=== PATIENT | male | born 1955 | race Caucasian/White ===

== ENCOUNTER 2018-04-29 07:51 | Day surgery (SDC) | payer MEDICARE, BC ==
[2018-04-29] MEDS ORDERED: DIPRIVAN 200 MG/20 ML IV ONE (07:52)
[2018-04-29] MEDS ORDERED: Depo-Medrol 40 MG/ML IM ONE (07:52)
[2018-04-29] MEDS ORDERED: Marcaine 0.5% SDV 10 ML IJ ONE (07:52)
[2018-04-29] MEDS ORDERED: Xylocaine 1% Vial 30 ML PF IJ ONE (07:52)
--- NOTE | 2018-04-29 11:26 | XRAY ---
Indication: Left hip injection. Intraoperative fluoroscopy was provided for 9 seconds. Single digital spot image submitted for interpretation demonstrates a needle tip projecting superolateral to the femoral head. Small amount of contrast injected for needle tip placement. Correlate with intraoperative findings/report.
--- NOTE | 2018-04-29 11:28 | XRAY ---
9 seconds fluoroscopy time in surgery for left hip injection.
--- NOTE | 2018-04-29 11:28 | XRAY ---
Indication: Right hip injection. Intraoperative fluoroscopy was provided for 10 seconds. Single digital spot image submitted for interpretation demonstrates a needle tip projecting lateral to the femoral head. Small amount of contrast injected for needle tip placement. Correlate with intraoperative findings/report.
--- NOTE | 2018-04-29 11:28 | XRAY ---
7 seconds fluoroscopy time in surgery for left shoulder injection.
--- NOTE | 2018-04-29 11:28 | XRAY ---
10 seconds fluoroscopy time in surgery for right hip injection.
--- NOTE | 2018-04-29 11:31 | XRAY ---
Indication: Left shoulder injection. Intraoperative fluoroscopy was provided for 7 seconds. Single digital spot image submitted for interpretation demonstrates a needle tip projecting over the medial humeral head. Small amount of contrast injected for needle tip placement. Correlate with intraoperative findings/report.
[2018-04-29] MEDS ORDERED: Lactated Ringers 1,000 ML IV ONE (14:57)
== END 2018-04-29 09:48 | disposition home or self-care (01) ==
LOC: SDC-PAIN 07:51
PROVIDERS: ATTEND Psychiatry & Neurology Pain Medicine
DX: M19.012 Primary osteoarthritis, left shoulder (principal); M19.011 Primary osteoarthritis, right shoulder; M25.512 Pain in left shoulder; M25.511 Pain in right shoulder; M25.552 Pain in left hip; M25.551 Pain in right hip; I10 Essential (primary) hypertension; E11.9 Type 2 diabetes mellitus without complications; J44.9 Chronic obstructive pulmonary disease, unspecified; F32.9 Major depressive disorder, single episode, unspecified; Z79.899 Other long term (current) drug therapy
CPT/HCPCS: 20610; 73030; 73501; 77002; J1030; J2001; J2704; Q9966

== ENCOUNTER 2018-06-17 07:53 | Day surgery (SDC) | payer MEDICARE, BC ==
[2018-06-17] MEDS ORDERED: Ketamine HCl 50 MG/ML IJ ONE (07:54)
[2018-06-17] MEDS ORDERED: Depo-Medrol 40 MG/ML IM ONE (07:54)
[2018-06-17] MEDS ORDERED: DIPRIVAN 200 MG/20 ML IV ONE (07:54)
[2018-06-17] MEDS ORDERED: Marcaine 0.5% SDV 10 ML IJ ONE (07:54)
--- NOTE | 2018-06-17 10:27 | XRAY ---
6 seconds fluoroscopy time in surgery for left knee injection.
--- NOTE | 2018-06-17 10:28 | XRAY ---
Indication: Left knee injection. Intraoperative fluoroscopy was provided for 6 seconds. Single digital spot image submitted for interpretation demonstrates needle tip in the left femur intercondylar notch. Small amount of contrast injected for needle tip placement. Correlate with intraoperative findings/report.
[2018-06-17] MEDS ORDERED: Lactated Ringers 1,000 ML IV ONE (18:01)
== END 2018-06-17 10:07 | disposition home or self-care (01) ==
LOC: SDC-PAIN 07:53
PROVIDERS: ATTEND Psychiatry & Neurology Pain Medicine
DX: M25.562 Pain in left knee (principal); M17.12 Unilateral primary osteoarthritis, left knee; Z79.899 Other long term (current) drug therapy; I10 Essential (primary) hypertension; E11.9 Type 2 diabetes mellitus without complications; E78.00 Pure hypercholesterolemia, unspecified; J44.9 Chronic obstructive pulmonary disease, unspecified
CPT/HCPCS: 20610; 73560; 77002; 82962; J1030; J2704; Q9966

== ENCOUNTER 2019-06-02 07:39 | Day surgery (SDC) | payer MEDICARE, BC ==
[2019-06-02] MEDS ORDERED: Marcaine 0.5% SDV 10 ML IM ONE (07:40)
[2019-06-02] MEDS ORDERED: DIPRIVAN 200 MG/20 ML IV ONE (09:18)
[2019-06-02] MEDS ORDERED: Versed 2 MG/2 ML Injection ONE (09:19)
[2019-06-02] MEDS ORDERED: Ketamine HCl 50 MG/ML ONE (09:19)
--- NOTE | 2019-06-02 10:42 | XRAY ---
Indication: Left knee genicular nerve block. Intraoperative fluoroscopy was provided for 14 seconds. 2 digital spot images of the left kidney submitted for interpretation demonstrates anterior needle tips projecting medial/lateral supracondylar and medial tibial plateau. Correlate with intraoperative findings/report.
[2019-06-02] MEDS ORDERED: Lactated Ringers 1,000 ML IV ONE (11:47)
--- NOTE | 2019-06-02 11:57 | XRAY ---
14 seconds fluoroscopy time in surgery for left genicular nerve block.
== END 2019-06-02 09:50 | disposition home or self-care (01) ==
LOC: SDC-PAIN 07:39
PROVIDERS: ATTEND Psychiatry & Neurology Pain Medicine
DX: M17.12 Unilateral primary osteoarthritis, left knee (principal); M25.562 Pain in left knee; G62.9 Polyneuropathy, unspecified; E11.9 Type 2 diabetes mellitus without complications; E78.00 Pure hypercholesterolemia, unspecified; J44.9 Chronic obstructive pulmonary disease, unspecified; I10 Essential (primary) hypertension; I73.9 Peripheral vascular disease, unspecified; Z79.899 Other long term (current) drug therapy
CPT/HCPCS: 64454; 73560; 77002; 82962; J2250; J2704

== ENCOUNTER 2019-09-08 09:08 | Day surgery (SDC) | payer MEDICARE, BC ==
[2019-09-08] MEDS ORDERED: Marcaine 0.5% SDV 10 ML IM ONE (09:09)
[2019-09-08] MEDS ORDERED: Xylocaine 1% Vial 30 ML PF IJ ONE (09:09)
[2019-09-08] MEDS ORDERED: Depo-Medrol 40 MG/ML IM ONE (09:09)
[2019-09-08] MEDS ORDERED: Ketamine HCl 50 MG/ML ONE (10:12)
[2019-09-08] MEDS ORDERED: DIPRIVAN 200 MG/20 ML IV ONE (10:12)
[2019-09-08] MEDS ORDERED: SUBLIMAZE 100 MCG/2 ML ONE (10:12)
--- NOTE | 2019-09-08 11:52 | XRAY ---
25 seconds fluoroscopy time in surgery for left genicular nerve ablation which could not be completed.
[2019-09-08] MEDS ORDERED: Lactated Ringers 1,000 ML IV ONE (14:53)
== END 2019-09-08 10:48 | disposition home or self-care (01) ==
LOC: SDC-PAIN 09:08
PROVIDERS: ATTEND Psychiatry & Neurology Pain Medicine
DX: M17.12 Unilateral primary osteoarthritis, left knee (principal); E11.9 Type 2 diabetes mellitus without complications; J44.9 Chronic obstructive pulmonary disease, unspecified; E78.00 Pure hypercholesterolemia, unspecified; Z79.899 Other long term (current) drug therapy
CPT/HCPCS: 64454; 77002; 82962; J1030; J2001; J2704; J3010